=== PATIENT | male | born 1985 | race Asian ===

== ENCOUNTER 2016-08-10 16:27 | Emergency (ER) | payer OTHER ==
--- NOTE | 2016-08-10 16:37 | EDPHY ---
H & P Time Seen by Provider: 08/10/16 17:06 HPI/ROS: CHIEF COMPLAINT: Traumatic chest pain HISTORY OF PRESENT ILLNESS: This patient is a normally healthy 30 year old male who presents to the Emergency Department for work-comp evaluation of traumatic chest pain secondary to getting hit yesterday with a metal trash can while at work. He describes his pain as localized to his left anterior chest and exacerbated when taking a deep breath. He denies dyspnea. He has no additional complaints. He has not taken any medications to treat his pain. REVIEW OF SYSTEMS: A ten point review of systems was performed and is negative with the exception of the items mentioned in the HPI. Source: Patient Exam Limitations: Language barrier - Medical/Surgical History PMH: Denies. - Social History Additional Social History: Works for [employer]. He is single. No tobacco use. - Physical Exam Exam: General Appearance: Alert. Vital signs reviewed. Sitting comfortably on the edge of stretcher. Focused exam of the chest: Left anterolateral chest wall tenderness. No crepitus. Lungs: Clear to auscultation bilaterally. Heart: Regular rate and rhythm without murmur. Skin: No bruising or abrasion at the site of his tenderness. Skin is warm and dry. Neurological: Alert and oriented. Moving all four extremities easily and equally. Psychiatric: Normal affect. Constitutional: Initial Vital Signs Temperature (C) 36.8 C 08/10/16 16:46 Heart Rate 60 08/10/16 16:46 Respiratory Rate 16 08/10/16 16:46 Blood Pressure 98/67 L 08/10/16 16:46 O2 Sat (%) 95 08/10/16 16:46 O2 Delivery Mode Room Air Allergies/Adverse Reactions: No Known Allergies Allergy (Unverified 08/10/16 16:49) Home Medications: Medication Instructions Recorded NK [No Known Home Meds] 08/10/16 Medical Decision Making - Diagnostics Imaging Results: Chest x-ray with rib views reviewed by me. No fracture or abnormalities noted. Imaging: I viewed and interpreted images myself ED Course/Re-evaluation: Normally healthy 30-year-old male with complaint of traumatic left-sided rib pain. He has no additional injuries and presents for work comp review. He has left anterolateral chest pain on exam. No other significant findings. Will proceed with chest x-ray including left ribs. X-ray of chest was read by Dr. James Wright and reviewed by myself; negative for acute abnormality. No pneumothorax. I discussed these findings with the patient. He will be given Tylenol and Ibuprofen instructions, a PCP/work comp referral for follow-up and customary return precautions. He is provided with a work note for today prior to discharge. Differential Diagnosis: I considered a differential diagnosis that includes but is not limited to rib fracture, pneumothorax, contusion, and abrasion. Departure - Departure Disposition: Home, Routine, Self-Care Clinical Impression: Encounter related to worker's compensation claim Rib contusion Qualifiers: Encounter type: initial encounter Laterality: left Qualified Code(s): S20.212A - Contusion of left front wall of thorax, initial encounter Condition: Good Instructions: Rib Contusion (ED) Additional Instructions: 1. Alternate 400mg Ibuprofen every six hours and 650mg Tylenol every four hours as needed for pain. 2. Follow-up with a primary care provider for reevaluation in 3-5 days if your symptoms do not improve. 3. Return to the Emergency Department if you experience severe pain, difficulty breathing, or for other serious concerns. Referrals: [facility],. [Clinic] - As per Instructions Subha Patel MD [Medical Doctor] - As per Instructions Stand Alone Forms: Work Comp Follow Up, Work Excuse Report Scribed for: Mary Lou Prado Report Scribed by: Bailey Baker Physician Review and Approval Statement: 08/10/16 16:37 Portions of this note were transcribed by the medical liaison. I, Dr. Mary Lou Prado, personally performed the history, physical exam, and medical decision- making; and confirmed the accuracy of the information in the transcribed note.
[2016-08-10 16:48] VITALS: BP 98/67; PULSE 60; RESP 16; TEMP 98.2; O2SAT 95
[2016-08-10] MEDS ORDERED: IBUPROFEN 200 MG TAB PO ONE (17:30)
== END 2016-08-10 17:25 | disposition home or self-care (01) ==
LOC: CED 16:27
DX: S20.212A Contusion of left front wall of thorax, initial encounter (principal); Z02.89 Encounter for other administrative examinations; W22.8XXA Striking against or struck by other objects, initial encounter; Y92.69 Other specified industrial and construction area as the place of occurrence of the external cause; Y99.0 Civilian activity done for income or pay; Y93.89 Activity, other specified
CPT/HCPCS: 71101-PO